=== PATIENT | female | born 1995 | race Caucasian/White ===

== ENCOUNTER → 2017-09-23 | Outpatient (CLI) | payer OTHER | LOC: BMCIMAGING 13:58 | PROVIDERS: ATTEND Family Medicine | DX: M25.561 Pain in right knee (principal) ==

== ENCOUNTER → 2017-11-01 | Outpatient (CLI) | payer OTHER | LOC: BMCIMAGING 14:46 | PROVIDERS: ATTEND Family Medicine | DX: R10.30 Lower abdominal pain, unspecified (principal); R19.7 Diarrhea, unspecified ==

== ENCOUNTER → 2018-11-02 | Outpatient (CLI) | payer OTHER | LOC: BMCIMAGING 10:06 → MERGE 10:06 | PROVIDERS: ATTEND Emergency Medicine | DX: M25.512 Pain in left shoulder (principal) ==

== ENCOUNTER 2019-01-20 17:35 | Observation (INO) | payer OTHER ==
--- NOTE | 2019-01-20 18:08 | EDPHY ---
H & P Stated Complaint: fatigue, slurred speech - Personal History Current Tetanus/Diphtheria Vaccine: Yes Current Tetanus Diphtheria and Acellular Pertussis (TDAP): Yes - Medical/Surgical History Hx Asthma: No Hx Chronic Respiratory Disease: No Hx Diabetes: No Hx Cardiac Disease: No Hx Renal Disease: No Hx Cirrhosis: No Hx Alcoholism: No Hx HIV/AIDS: No Hx Splenectomy or Spleen Trauma: No Other PMH: denies - Social History Smoking Status: Never smoked Time Seen by Provider: 01/20/19 17:40 HPI/ROS: CHIEF COMPLAINT: Altered mentation, slurred speech HISTORY OF PRESENT ILLNESS: 23-year-old female male generally healthy, active, arrives via private vehicle. She describes completing a 1 hr workout, feeling well, went home and took a shower. When she came out of the shower she felt relatively sudden onset of fatigue, confusion, dizzy. She laid down on the floor and was talking to and then texting her mother and boyfriend. Her mother , who is on speaker phone when I enter the room, describes that at 5:00 p.m. When the patient was laying on the floor the patient's speech was intermittently garbled in gibberish as well as text messages that or gibberish. This has by and large resolved. The boyfriend states that her altered mentation has resolved other she currently looks like "she is drunk" and denies alcohol use. She has prior history of syncopal episodes and completed Holter monitoring few years ago which was negative per patient report. PRIMARY CARE PROVIDER: REVIEW OF SYSTEMS: 10 systems reviewed and negative with the exception of the elements mentioned in the history of present illness PAST MEDICAL & SURGICAL HISTORY: No pertinent medical or surgical history. No history of hospitalizations or medications. SOCIAL HISTORY: Recently graduated student. Nonsmoker. No drug use. Mild alcohol use last evening. FAMILY HISTORY: no family history of vasculopathy or migraine. PHYSICAL EXAM (Prior to examination, patient consented to physical exam, hands were washed and my usual and customary physical exam procedures followed) 1) GENERAL: Well-developed, well-nourished, alert and oriented. Appears to be in no acute distress. Speech is slow 2) HEAD: Normocephalic, atraumatic 3) HEENT: Pupils equal, round, reactive to light bilaterally. Sclera anicteric. Symmetrical faces Nasopharynx, oropharynx, clear, no lesions. MoistDry mucous membranes. Ears bilaterally with normal tympanic membranes. 4) NECK: Full range of motion, no meningeal signs. 5) LUNGS: Clear auscultation bilaterally, no wheezes, no rhonchi, no retractions. 6) HEART: Regular rate and rhythm, no murmur, no heave, no gallop. 7) ABDOMEN: No guarding, no rebound, no focal tenderness, negative McBurney's, negative Curiel's, negative Rovsing's, negative peritoneal sign, 8) MUSCULOSKELETAL: Moving all extremities, no focal areas of tenderness, no obvious trauma. No peripheral edema or discoloration. 9) BACK: No CVA tenderness, no midline vertebral tenderness, no fluctuance, no step-off, no obvious trauma, no visual or palpable abnormality. 10) SKIN: No rash, no petechiae. 11) Psychiatric: Patient is oriented X 3, there is no agitation. 12) NEURO: Awake, alert, and oriented to person, place and time. Answers questions appropriately. There were no obvious focal neurologic abnormalities. Cerebellar dysfunction noted, notably heel to toe dysfunction noted. Cranial nerves 2 through to 12 intact. Normal steady gait. Upper and lower extremities bilaterally with strength 5 / 5, reflexes 2+. DIFFERENTIAL DIAGNOSIS: In no particular order including but not limited to transient global amnesia, CVA, TIA, migraine variant, seizure, dysrhythmia (Honey,Rai Ladonna) Constitutional: Initial Vital Signs Temperature (C) 36.7 C 01/20/19 17:38 Heart Rate 76 01/20/19 17:38 Respiratory Rate 16 01/20/19 17:38 Blood Pressure 102/61 01/20/19 17:38 O2 Sat (%) 98 01/20/19 17:38 O2 Delivery Mode Room Air Allergies/Adverse Reactions: No Known Allergies Allergy (Unverified 01/20/19 17:37) Home Medications: Medication Instructions Recorded Norethindrone-E.estradiol-Iron 1 each PO Q21D 01/20/19 [Blisovi Fe 1.5-30 Tablet] Medical Decision Making - Diagnostics Imaging Results: Imaging Impressions Brain MRI 01/20/19 17:59 Impression: Normal MRI of the brain without contrast. Findings and recommendations discussed with Emergency Department physician, Rai Méndez at 19:15 hour, 01/20/2019. Final report concurs with initial preliminary interpretation. Head CTA 01/20/19 18:39 Impression: 1. Normal CTA of the carotids and vertebral arteries. 2. No carotid or vertebral artery flow-limiting stenosis, occlusion, dissection , or atherosclerotic disease. Measurement of carotid stenosis is based on the residual internal carotid diameter with [place] Symptomatic Carotid Endarterectomy Trial (NASCET) based stenosis levels. CT Angiogram of the Brain Clinical Indications: Possible CVA/TIA. Technique: CT angiogram of the brain and neck was performed, with the uneventful intravenous administration of 85 mL Isovue-370 contrast. Multiplanar reconstructions including 3D reconstructions performed and evaluated on Vitrea workstation in order to better evaluate the tet[place] of [place] vessels. Images were manipulated by the radiologist at the computer workstation. Dose reduction techniques were utilized. Findings: Major vessels of the [place] of [place] are adequately displayed, demonstrating no evidence of aneurysm, vascular malformation, flow-limiting stenosis, or occlusion. Bilateral cavernous internal carotid arteries and vertebrobasilar system demonstrates no evidence of flow-limiting stenosis, aneurysm, occlusion, or dissection. Superior sagittal sinus, transverse sinuses , and major veins demonstrate no evidence of intraluminal thrombi. Impression: Negative CT angiogram of the brain. Findings and recommendations discussed with Emergency Department physician, Neto Méndez PA-C, at 1951 hours, on January 20, 2019. Final report concurs with initial preliminary interpretation. Neck CTA 01/20/19 18:39 Impression: 1. Normal CTA of the carotids and vertebral arteries. 2. No carotid or vertebral artery flow-limiting stenosis, occlusion, dissection , or atherosclerotic disease. Measurement of carotid stenosis is based on the residual internal carotid diameter with [place] Symptomatic Carotid Endarterectomy Trial (NASCET) based stenosis levels. CT Angiogram of the Brain Clinical Indications: Possible CVA/TIA. Technique: CT angiogram of the brain and neck was performed, with the uneventful intravenous administration of 85 mL Isovue-370 contrast. Multiplanar reconstructions including 3D reconstructions performed and evaluated on Vitrea workstation in order to better evaluate the [place] of [place] vessels. Images were manipulated by the radiologist at the computer workstation. Dose reduction techniques were utilized. Findings: Major vessels of the [place] of [place] are adequately displayed, demonstrating no evidence of aneurysm, vascular malformation, flow-limiting stenosis, or occlusion. Bilateral cavernous internal carotid arteries and vertebrobasilar system demonstrates no evidence of flow-limiting stenosis, aneurysm, occlusion, or dissection. Superior sagittal sinus, transverse sinuses , and major veins demonstrate no evidence of intraluminal thrombi. Impression: Negative CT angiogram of the brain. Findings and recommendations discussed with Emergency Department physician, Neto Méndez PA-C, at 1951 hours, on January 20, 2019. Final report concurs with initial preliminary interpretation. ED Course/Re-evaluation: 1814: I assessed this patient at the request of ANMOL Maradiaga. I agree with his plan for care and treatment of this patient. Her speech with me is quite fluent and coherent, she reports that this is improving. (Bonifacio Sellers) Patient was re-evaluated with serial examinations. Initial exam she is noted to have cerebellar dysfunction, slow speech, otherwise nonfocal exam with NIH score of 0. Diagnostic studies include normal MRI, CTA neck and brain. Patient was re-evaluated with serial examinations and notes improvement in symptoms however most recent examination according to her boyfriend, which is clinical my exam findings, her speech remains slow. I spoke with the patient, verbal consent obtained by the patient, I think admission to the hospital is appropriate given her continued symptoms. The patient and family are agreeable with this. I consulted Dr. Jacque Lassiter who will admit patient. (Rai Méndez) - Data Points Laboratory Results: Laboratory Results 01/20/19 18:06 01/20/19 18:06 01/20/19 01/20/19 01/20/19 18:06 18:06 18:06 WBC 8.37 10^3/uL 10^3/uL (3.80-9.50) RBC 4.47 10^6/uL 10^6/uL (4.18-5.33) Hgb 13.6 g/dL g/dL (12.6-16.3) Hct 41.2 % % (38.0-47.0) MCV 92.2 fL fL (81.5-99.8) MCH 30.4 pg pg (27.9-34.1) MCHC 33.0 g/dL g/dL (32.4-36.7) RDW 12.2 % % (11.5-15.2) Plt Count 324 10^3/uL 10^3/uL (150-400) MPV 8.7 fL fL (8.7-11.7) Neut % (Auto) 55.6 % % (39.3-74.2) Lymph % (Auto) 37.4 % % (15.0-45.0) Whiteside % (Auto) 5.6 % % (4.5-13.0) Eos % (Auto) 0.6 % % (0.6-7.6) Baso % (Auto) 0.6 % % (0.3-1.7) Nucleat RBC Rel Count 0.0 % % (0.0-0.2) Absolute Neuts (auto) 4.65 10^3/uL 10^3/uL (1.70-6.50) Absolute Lymphs (auto) 3.13 10^3/uL H 10^3/uL (1.00-3.00) Absolute Monos (auto) 0.47 10^3/uL 10^3/uL (0.30-0.80) Absolute Eos (auto) 0.05 10^3/uL 10^3/uL (0.03-0.40) Absolute Basos (auto) 0.05 10^3/uL 10^3/uL (0.02-0.10) Absolute Nucleated RBC 0.00 10^3/uL 10^3/uL (0-0.01) Immature Gran % 0.2 % % (0.0-1.1) Immature Gran # 0.02 10^3/uL 10^3/uL (0.00-0.10) Sodium 139 mEq/L mEq/L (135-145) Potassium 3.5 mEq/L mEq/L (3.5-5.2) Chloride 104 mEq/L mEq/L (97-110) Carbon Dioxide 27 mEq/l mEq/l (22-31) Anion Gap 8 mEq/L mEq/L (6-14) BUN 16 mg/dL mg/dL (7-23) Creatinine 0.7 mg/dL mg/dL (0.6-1.0) Estimated GFR > 60 Glucose 90 mg/dL mg/dL (70-100) Calcium 9.3 mg/dL mg/dL (8.5-10.4) Beta HCG, Qual NEGATIVE Urine Opiates Screen Urine Barbiturates Ur Phencyclidine Scrn Ur Amphetamine Screen U Benzodiazepines Scrn Urine Cocaine Screen U Marijuana (THC) Screen Ethyl Alcohol < 10 mg/dL mg/dL (0-10) 01/20/19 18:00 WBC RBC Hgb Hct MCV MCH MCHC RDW Plt Count MPV Neut % (Auto) Lymph % (Auto) Whiteside % (Auto) Eos % (Auto) Baso % (Auto) Nucleat RBC Rel Count Absolute Neuts (auto) Absolute Lymphs (auto) Absolute Monos (auto) Absolute Eos (auto) Absolute Basos (auto) Absolute Nucleated RBC Immature Gran % Immature Gran # Sodium Potassium Chloride Carbon Dioxide Anion Gap BUN Creatinine Estimated GFR Glucose Calcium Beta HCG, Qual Urine Opiates Screen NEGATIVE (NEGATIVE) Urine Barbiturates NEGATIVE (NEGATIVE) Ur Phencyclidine Scrn NEGATIVE (NEGATIVE) Ur Amphetamine Screen NEGATIVE (NEGATIVE) U Benzodiazepines Scrn NON-NEGATIVE H (NEGATIVE) Urine Cocaine Screen NEGATIVE (NEGATIVE) U Marijuana (THC) Screen NEGATIVE (NEGATIVE) Ethyl Alcohol Departure - Departure Disposition: [facility] Inpatient Acute Clinical Impression: Altered mental state Qualifiers: Altered mental status type: unspecified Qualified Code(s): R41.82 - Altered mental status, unspecified Condition: Fair NIH Stroke Scale Date of Exam: 01/20/19 Time of Exam: 18:00 Level of Consciousness: Alert LOC Questions: Answers Both LOC Commands: Performs Both Correctly Best Gaze: Normal Visual: No Visual Loss Facial Palsy: Normal Motor Arm-Left: No Drift Motor Arm-Right: No Drift Motor Leg-Left: No Drift Motor Leg-Right: No Drift Limb Ataxis: Absent Sensory: Normal Best Language: No Aphasia Dysarthria: Normal Extinction and Inattention (Neglect): No Abnormality NIH Scale Score: 0
[2019-01-20 18:19] LABS: PLATELET COUNT 324 10^3/uL (150-400)
[2019-01-20] MEDS ORDERED: IOPAMIDOL (ISOVUE 370) 100 ML BTL IV ONE (18:53)
--- NOTE | 2019-01-20 19:19 | CPEKG ---
Test Reason : OPEN Blood Pressure : / mmHG Vent. Rate : 070 BPM Atrial Rate : 069 BPM P-R Int : 139 ms QRS Dur : 076 ms QT Int : 378 ms P-R-T Axes : 004 076 011 degrees QTc Int : 408 ms Sinus rhythm Confirmed by Bonifacio Sellers ([id number]) on 01/20/2019 7:18:41 PM Referred By: Bonifacio Sellers Confirmed By:Bonifacio Sellers
[2019-01-20] MEDS ORDERED: ONDANSETRON 4 MG/2 ML VIAL IVP PRN (21:17)
[2019-01-20] MEDS ORDERED: ACETAMINOPHEN 325 MG TAB PO PRN (21:17)
[2019-01-20] MEDS ORDERED: ONDANSETRON DISINTEGRATING 4 MG TAB PO PRN (21:17)
--- NOTE | 2019-01-20 21:26 | PDGENHP ---
History and Physical - Chief Complaint dizziness, dysarthria - History of Present Illness 23 yo healthy female presents to ED after an episode of dizziness and generalized weakness associated with dysarthria. She just graduated from college and plans to attend law school in the fall. She notes a very busy and stressful past couple of weeks, which has led her to feeling exhausted. While showering today, she began to feel lethargic and then became a bit dizzy / lightheaded. She then called her mom and it was noted her speech was abnormal, dysarthric. She texted her boyfriend and her mom and reportedly these texts were not legible. She was brought to the ED where CTA head and neck were normal. Brain MRI is also normal. She denies recent ingestion of substances. She admits to h/o marijuana, ecstasy and alcohol, but nothing recent. Interestingly, her tox screen is positive for BZD's though she did not mention use of BZD's. She denies headache, vision changes, fevers/chills, CP or SOB. There was no focal or lateralizing weakness. Her general fatigue seems better and her speech is 90 % back to normal rate, just seems a bit slow still per her boyfriend. She is admitted for further evaluation. History Information - Allergies/Home Medication List Allergies/Adverse Reactions: No Known Allergies Allergy (Unverified 01/20/19 17:37) Home Medications: Norethindrone-E.estradiol-Iron [Blisovi Fe 1.5-30 Tablet] 1 each PO Q21D [Last Taken 01/18/19] I have personally reviewed and updated: family history, medical history, social history, surgical history - Past Medical History no pertinent PMH - Surgical History Reports: no pertinent surgical hx - Social History Smoking Status: Never smoked Alcohol Use: Occasionally Drug Use: Marijuana Additional social history: Recent [employer] grad, going to law school in the fall Review of Systems Review of Systems: ROS: 10pt was reviewed & negative except for what was stated in HPI & below Physical Exam Physical Exam: Temp Pulse Resp BP Pulse Ox 36.4 C 68 16 117/67 98 01/20/19 21:17 01/20/19 21:17 01/20/19 21:17 01/20/19 21:17 01/20/19 21:17 Constitutional: no apparent distress Eyes: PERRL Ears, Nose, Mouth, Throat: moist mucous membranes Cardiovascular: regular rate and rhythym, no murmur, rub, or gallop Respiratory: no respiratory distress, clear to auscultation Gastrointestinal: normoactive bowel sounds, soft, non-tender abdomen Skin: warm Musculoskeletal: full muscle strength Neurologic: AAOx3 Psychiatric: interacting appropriately Lab Data & Imaging Review 01/20/19 18:06 01/20/19 18:06 WBC 8.37 10^3/uL (3.80-9.50) 01/20/19 18:06 RBC 4.47 10^6/uL (4.18-5.33) 01/20/19 18:06 Hgb 13.6 g/dL (12.6-16.3) 01/20/19 18:06 Hct 41.2 % (38.0-47.0) 01/20/19 18:06 MCV 92.2 fL (81.5-99.8) 01/20/19 18:06 MCH 30.4 pg (27.9-34.1) 01/20/19 18:06 MCHC 33.0 g/dL (32.4-36.7) 01/20/19 18:06 RDW 12.2 % (11.5-15.2) 01/20/19 18:06 Plt Count 324 10^3/uL (150-400) 01/20/19 18:06 MPV 8.7 fL (8.7-11.7) 01/20/19 18:06 Neut % (Auto) 55.6 % (39.3-74.2) 01/20/19 18:06 Lymph % (Auto) 37.4 % (15.0-45.0) 01/20/19 18:06 [place]ayson % (Auto) 5.6 % (4.5-13.0) 01/20/19 18:06 Eos % (Auto) 0.6 % (0.6-7.6) 01/20/19 18:06 Baso % (Auto) 0.6 % (0.3-1.7) 01/20/19 18:06 Nucleat RBC Rel Count 0.0 % (0.0-0.2) 01/20/19 18:06 Absolute Neuts (auto) 4.65 10^3/uL (1.70-6.50) 01/20/19 18:06 Absolute Lymphs (auto) 3.13 10^3/uL (1.00-3.00) H 01/20/19 18:06 Absolute Monos (auto) 0.47 10^3/uL (0.30-0.80) 01/20/19 18:06 Absolute Eos (auto) 0.05 10^3/uL (0.03-0.40) 01/20/19 18:06 Absolute Basos (auto) 0.05 10^3/uL (0.02-0.10) 01/20/19 18:06 Absolute Nucleated RBC 0.00 10^3/uL (0-0.01) 01/20/19 18:06 Immature Gran % 0.2 % (0.0-1.1) 01/20/19 18:06 Immature Gran # 0.02 10^3/uL (0.00-0.10) 01/20/19 18:06 Sodium 139 mEq/L (135-145) 01/20/19 18:06 Potassium 3.5 mEq/L (3.5-5.2) 01/20/19 18:06 Chloride 104 mEq/L (97-110) 01/20/19 18:06 Carbon Dioxide 27 mEq/l (22-31) 01/20/19 18:06 Anion Gap 8 mEq/L (6-14) 01/20/19 18:06 BUN 16 mg/dL (7-23) 01/20/19 18:06 Creatinine 0.7 mg/dL (0.6-1.0) 01/20/19 18:06 Estimated GFR > 60 01/20/19 18:06 Glucose 90 mg/dL (70-100) 01/20/19 18:06 Calcium 9.3 mg/dL (8.5-10.4) 01/20/19 18:06 Beta HCG, Qual NEGATIVE 01/20/19 18:06 Urine Opiates Screen NEGATIVE (NEGATIVE) 01/20/19 18:00 Urine Barbiturates NEGATIVE (NEGATIVE) 01/20/19 18:00 Ur Phencyclidine Scrn NEGATIVE (NEGATIVE) 01/20/19 18:00 Ur Amphetamine Screen NEGATIVE (NEGATIVE) 01/20/19 18:00 U Benzodiazepines Scrn NON-NEGATIVE (NEGATIVE) H 01/20/19 18:00 Urine Cocaine Screen NEGATIVE (NEGATIVE) 01/20/19 18:00 U Marijuana (THC) Screen NEGATIVE (NEGATIVE) 01/20/19 18:00 Ethyl Alcohol < 10 mg/dL (0-10) 01/20/19 18:06 Visualized and Interpreted EKG results: Yes EKG Interpretation: Positive for: normal sinsus rhythm Assessment & Plan Assessment: Dysarthria / weakness / dizziness - TIA is possible, though I query if she may have been drug affected by BZD's, which turned up on her tox screen though she did not volunteer this information. CTA head/neck and MRI are unremarkable. Symptoms have resolved. Will monitor on telemetry and check echo for completeness. Neurology consult in am. Full code Dispo - obs
[2019-01-21 08:14] VITALS: BP 116/67
--- NOTE | 2019-01-21 10:36 | PDDCSUM ---
Discharge Summary Discharge Summary: DAtes of service 01/20-01/21/29 Consultation: neurology Procedures performed: brain mri, head/neck CTA, echo Hospital course by problem: Dysarthria / weakness / dizziness - resolved, w/u for possible TIA completely benign, Utox showing benzos and patient states she does not know how that got in her urine but that she has felt like this before on benzos so suspect either accidental or surreptitious benzo intoxication as etiology of her sxs. Full code DC home f/u with PCP No further w/u pending or indicated
--- NOTE | 2019-01-21 11:03 | GCON ---
[f rep st] CONSULTATION NEUROLOGY CONSULT DATE OF CONSULTATION: 01/21/2019 REFERRING PHYSICIAN: Karla Lassiter MD CHIEF COMPLAINT: Transient neurologic symptoms. HISTORY OF PRESENT ILLNESS: The patient is a very pleasant 23-year-old young lady who just graduated from [employer] last week. Her parents were visiting and celebrated with her. They left on Saturday on Mother's Day. The patient was preparing for a trip on Saturday and went to the gym yesterday afternoon or evening and had a fairly good workout. She then took a hot shower and started feeling very lethargic and generally weak, and felt like her speech was getting slurred. She endorses that the symptoms she had yesterday were identical to the symptoms she has had previously from using Xanax recreationally. However, she states she has not used Xanax for "years." Because of these symptoms, she came to the emergency department and had a full neurologic evaluation, including MRI brain which was normal. CTA head and neck , both of which were entirely normal. Her symptoms were 90% resolved while in the emergency department. She was observed and admitted for observation. Her labs showed no significant abnormalities outside of toxicology, which showed a non-negative benzodiazepine screen. She has had no constitutional symptoms. She has had complete resolution of her symptoms when she woke up this morning and feels "great." She wants to go home. REVIEW OF SYSTEMS: Ten-point review of systems was done, only pertinent to the HPI. For past medical history, social history, family history, home medications, allergies please see Dr. Lassiter's H and P. PHYSICAL EXAM: VITAL SIGNS: Blood pressure is 116/67, temperature is 36.6, heart rate 60s to 70s. GENERAL: She is very pleasant and in no distress. Her higher mental function exam is completely normal. No aphasia. She is lucid and bright. MOTOR: She has normal strength, tone, reflexes throughout. SENSORY: Normal to light touch throughout. CRANIAL NERVES: Normal cranial nerves 2-7, 11 and 12. She has normal coordination in all 4 extremities and normal gait. Negative Romberg. Normal tandem walking. In summary, comprehensive neurologic exam is entirely normal. IMPRESSION AND PLAN: 1. Toxic encephalopathy, resolved. This patient endorses that the symptoms she had yesterday are identical to the way she feels when taking recreational benzodiazepines. Indeed, her urine toxicology showed a non-negative benzodiazepine level. However, she denies taking any benzodiazepines. She admits that it is a possibility that it may have been given to her in a covert fashion, but she is not sure. She will carefully think about where she was and who she was with in the last few days prior to admission. There were no other abnormalities biochemically, on exam today or on imaging at this point. She feels absolutely normal and requests discharge home from the hospital. This is reasonable. No further recommendations. I will discuss with the hospitalist team. Seventy total minutes of floor time; over 50% direct counseling and coordination of care. We will sign off and follow up as needed. Please do not hesitate to call if there are any questions or changes in this patient's neurologic status. She will return to the emergency department for any acute neurologic symptoms. /[id number]/MODL MTDD
--- NOTE | 2019-01-21 14:00 | ECHO ---
[email or web address] [address] Main: [phone] Echocardiography Examination Transthoracic Name: DARINEL PRUETT MR#: [id number] Study Date: 01/21/2019 Study Time: 10:21 AM Date of : 1995 Age: 23 year(s) Height: 160 cm (63 in.) Weight: 54.43 kg (120 lb.) BSA: 1.56 m2 Gender: Female Examination: Echo with Agitated Saline Contrast: Image Quality: Adequate Rhythm: Heart Rate: BP: 116 mmHg/67 mmHg Indication: TIA Procedure Staff Referring Physician: Chapter Relations Administrator: Paige Lloyd RDCS Reading Physician: Hawa Willams MD Requesting Provider: Ordering Physician: Karla Lassiter Indication: TIA 1. The left ventricle is normal in size and systolic function. Ejection fraction 65%. No regional wall motion abnormalities. Normal diastolic function. Wall thickness is normal. 2. The right ventricle is normal in size and systolic function. 3. Bubble study was negative for interatrial shunting. 4. mild mitral regurgitation. 5. Trivial tricuspid regurgitation with normal estimated pulmonary artery pressure. 6. No previous echo 7. There is no obvious cardiac source of emboli on current study. AZAM is more sensitive for the detection of cardiac source of embolism. Measurements Chambers AV/MV Label Value Normal Value Label Value Normal Value LVOTd 1.9 cm (1.8cm - 2cm) AV PGmax 8 mmHg LVOT VTI 20.6 cm (18cm - 22cm) AV PGmean 4 mmHg LVDd, 2D 4.5 cm (3.9cm - 5.3cm) AV Vmax 1.37 m/s LVDs, 2D 2.9 cm (2.1cm - 4cm) PHUONG (VTI) 2 cm2 IVSd, 2D 0.9 cm (0.6cm - 1.1cm) MV E Vmax 1.08 m/s LVPWd, 2D 0.8 cm MV A Vmax 0.5 m/s LVEF, BP 65 % (55% - 70%) MV E/A 2.16 LVEF, 2D 65 % (54% - 74%) MV E/E' lateral 5.9 LVOT PGmean 2 mmHg MV E/E' septal 8.1 (0.6 - 2.6) LVOT Vmean 0.74 m/s MV DT 190 ms Patient: DARINEL PRUETT Study Date: 01/21/2019 Page 1 of 3 10:21 AM RVDd, 2D 2.7 cm (1.9cm - 3.8cm) MV E' septal 0.13 m/s LA Volume, BP 35 ml (22ml - 52ml) MV PHT 0.05 s LADs, 2D 2.7 cm (2.7cm - 3.8cm) MVA PHT 4.2 cm2 LAESV index, BP 22.4 ml/m2 MV E' lateral 0.18 m/s RA Area 9.9 cm2 MV E/E' mean 6.97 Additional Vessels MV PHT 52 ms Label Value Normal Value MV E' mean 0.16 m/s AoAsc 2.8 cm TV/PV AoRoot, 2D 2.8 cm (1.4cm - 2.6cm) Label Value Normal Value IVC 1.2 cm (1.2cm - 2.3cm) RA Pressure 5 mmHg RVSP 20 mmHg TR Pmax 15 mmHg TR Vmax 1.95 m/s PV PGmax 2 mmHg PV Vmax, Caliper 0.76 m/s (0.6m/s - 0.9m/s) Findings Left Ventricle: Left ventricle is normal in size. Normal global systolic left ventricular function. The ejection fraction, measured by Simpsons method, is 65 %. EF range is estimated at 60 % - 65 %. Left ventricle wall thickness is normal. There are no regional wall motion abnormalities. Left ventricular diastolic function parameters are normal. No LV hypertrophy. Right Ventricle: Normal size right ventricle. Right ventricular systolic function is normal. Left Atrium: The left atrium is normal in size. IAS: An agitated saline study was performed and was negative for intracardiac shunting. Right Atrium: The right atrium is normal in size. Mitral Valve: Mitral valve appears structurally normal. Mild mitral regurgitation. No mitral valve stenosis. Aortic Valve: Aortic leaflets are structurally normal. No significant aortic valve regurgitation. There is no aortic stenosis. Tricuspid Valve: Tricuspid valve leaflets are structurally normal. Trivial tricuspid regurgitation. No tricuspid valve stenosis. Right Ventricular systolic pressure is measured at 20 mmHg. Pulmonary artery pressure normal. Pulmonic Valve: Pulmonic leaflets are structurally normal. Mild pulmonic valve regurgitation is present. Aorta: The aortic root size in 2D measures 2.8 cm. The ascending aorta measures 2.8 cm. Aorta Measurements AoRoot, 2D is 2.8 cm. IVC: The inferior vena cava is normal in size. Pericardium: No pericardial effusion. Exam Details Procedure Ordered: Echo with Agitated Saline Procedure Status: Routine study Image Quality: Adequate Facility Location: Cardiac Echo 1 Patient: DARINEL PRUETT Study Date: 01/21/2019 Page 2 of 3 10:21 AM (No Signature Object) Patient: DARINEL PRUETT Study Date: 01/21/2019 Page 3 of 3 10:21 AM [id number]
[2019-02-08] MEDS ORDERED: NORETHINDRONE E ESTRADIOL IRON PO SCH (09:00)
== END 2019-01-21 11:07 | disposition home or self-care (01) ==
LOC: F3E 21:12
PROVIDERS: ADMIT Hospitalist; ATTEND Hospitalist
DX: R41.82 Altered mental status, unspecified (principal)
CPT/HCPCS: 70496; 70498; 70551; 93005; 93306; 99285; G0378; 80305; G0480; Q9967